=== PATIENT | male | born 1995 | race African-American/Black ===

== ENCOUNTER 2022-04-18 14:49 | Inpatient (IN) | payer OTHER, SELFPAY ==
--- NOTE | ~2022-04-18 | CT_ITS ---
EXAMINATION: CT HEAD WITHOUT CONTRAST CLINICAL INFORMATION: Headache COMPARISON: None TECHNIQUE: Contiguous axial imaging was performed from the skull base to vertex without intravenous administration of contrast. This CT examination was performed using dose optimization techniques as appropriate, variously including the following: *Automated exposure control *Adjustment of mA and/or kV according to patient size (this includes techniques or standardized protocols for targeted exams where dose is matched to indication/reason for exam; i.e. extremities or head) *Use of iterative reconstruction technique DLP: 696 mGy-cm FINDINGS: There is no evidence of acute intracranial hemorrhage or territorial infarction. No abnormal mass effect or midline shift is appreciated. Keller-white differentiation is well preserved. No extra-axial fluid collections. The ventricular system and cortical sulci are normal in size. The osseous structures and soft tissues are normal. Congenitally absent left frontal sinus. Mild mucosal thickening of a few ethmoid air cells. Other visualized paranasal sinuses and mastoid air cells are well aerated. CT/CT head/brain wo IV con IMPRESSION: No CT evidence for acute intracranial pathology.
[2022-04-18 15:35] VITALS: BP 136/64; PULSE 58; RESP 14; TEMP 37.2; O2SAT 100; BMI 22.4
--- NOTE | 2022-04-18 15:45 | ECG_ITS ---
Test Reason : HEADACHE Blood Pressure : / mmHG Vent. Rate : 052 BPM Atrial Rate : 052 BPM P-R Int : 144 ms QRS Dur : 084 ms QT Int : 402 ms P-R-T Axes : 059 079 035 degrees QTc Int : 373 ms Sinus bradycardia Otherwise normal ECG No previous ECGs available Referred By: Destini De Guzman Electronically Signed By:SOLITARIO SANCHES
[2022-04-18 16:39] LABS: MANUAL DIFF FLAG NO
[2022-04-18 16:40] LABS: Basophils Percent Auto 0.6 % (0-2); Eosinophils Absolute Auto 0.1 X10*3/uL (0.0-0.4); Eosinophils Percent Auto 1.9 % (0-4); Hematocrit 46.2 % (42.0-52.0); Hemoglobin 15.2 g/dl (14.0-18.0); Imm Gran Abs Auto 0.02 X10*3/uL (0.00-0.03); Imm Gran Pct Auto 0.3 % (0.0-0.4); Lymphocytes Absolute Auto 2.4 X10*3/uL (1.2-4.9); Lymphocytes Percent Auto 33.9 % (20-40); Mean Corpuscular HGB Conc 32.9 g/dl (31.0-36.0); Mean Corpuscular Volume 88.2 fL (80.0-98.0); Mean Platelet Volume 10.1 fL (9.4-12.4); Monocytes Absolute Auto 0.5 X10*3/uL (0.1-1.2); Monocytes Percent Auto 6.6 % (2-11); Neutrophils Absolute Auto 3.9 x10*3/uL (2.0-8.3); Neutrophils Percent Auto 56.7 % (45-73); Platelet Count 180 X10*3/uL (160-400); Red Blood Count 5.24 X10*6/uL (4.60-5.80); Red Cell Distribution Width 13.2 % (11.0-16.0); White Blood Count 6.9 X10*3/uL (4.8-10.8)
[2022-04-18 16:59] LABS: COVID-19 Test Negative (Negative)
--- NOTE | 2022-04-18 16:59 | ED.PSYCH ---
HPI - Psych General Chief Complaint: Psychiatric Symptoms Stated Complaint: Migraine Time Seen by Provider: 04/18/22 15:44 Source: patient Mode of arrival: ambulatory History of Present Illness HPI Narrative: This is a 26-year-old male who presents for complaints of migraines off and on for 1 year and states that he has been seen multiple times in [place], he denies any association with any tick exposure, fevers, chills, auditory or visual hallucinations, nausea or vomiting or photosensitivity. In addition, he denies any eye or nasal drainage and states that it is ?more of difficulty with focusing?. Patient denies any suicidal or homicidal ideations and states that he was recently admitted approximately 2-3 months ago for these headaches and [place]. Patient states that his headache gets worse attempting to focus and then asks me about ?Darline bots?. On review of the triage note, patient was an expected referral from Dr. Callahan reported concerns about ?disorganized thoughts? and that patient had thought ?needed to have nanobots removed from his head?. Related Data Allergies Allergy/AdvReac Type Severity Reaction Status Date / Time pollen extracts Allergy Itchy Eyes Verified 04/18/22 15:34 Review of Systems Review of Systems: Pertinent positives and negatives as stated in HPI 10 point review of systems is otherwise negative. PMFSH Social History Social History Advance Directives: No Advance Directives Information Provided: Yes Physical Exam Vital Signs: Vital Signs: Last Vital Signs Temp 99.0 F 04/18/22 15:35 Pulse 58 04/18/22 15:35 Resp 14 04/18/22 15:35 BP 136/64 04/18/22 15:35 Pulse Ox 100 04/18/22 15:35 O2 Del Method 04/18/22 15:35 BMI result Body Mass Index 22.4 VITAL SIGNS: Reviewed. GENERAL: Well developed, well nourished, in no acute distress. HEAD: Normocephalic/atraumatic EYES: PERRLA, EOMI, no nystagmus EARS: Ext canals without abnormality, TMs non-bulging and non-erythematous NOSE: Nares patent bilateral OROPHARYNX: no oral lesions noted, posterior pharynx clear NECK: Supple, no adenopathy LUNGS: Normal breath sounds. No adventitious sounds or accessory muscle use. SpO2<100> CARDIOVASCULAR: Regular rate and rhythm without noted murmurs ABDOMEN: Soft, non-tender, non-distended with bowel sounds. MUSCULOSKELETAL: No tenderness, deformities, or effusions noted on gross inspection. EXTREMITIES: No cyanosis, clubbing or edema. SKIN: Inspection of the skin reveals no rashes NEUROLOGIC: Alert and oriented x 4. Strength and sensation to light touch were grossly intact x 4, cranial nerves 2-12 are grossly intact. Course Course Course Narrative: 26-year-old male with history and clinical presentation most consistent with acute psychosis, will evaluate for possible medical etiology, however due to patient's history, the physician who initially evaluated him through the [employer], and on my evaluation he will need to be re-evaluated by the behavioral team although it sounds like they have already seen this patient previously in recommended inpatient. Patient is otherwise medically cleared for further evaluation after receiving combination analgesics for his headache. Reevaluation(s) Reevaluation #1: Patient placed in physician observation because the patient needed more time for evaluation by the behavioral team. At the time observation was started the patient's vital signs were stable, patient is alert and oriented, neuro: Nonfocal, CV RRR, lungs clear Time: 17:40 [facility] - Psych Lab Data Result diagrams: 04/18/22 16:28 04/18/22 16:28 Labs: Lab Results 04/18/22 04/18/22 04/18/22 Range/Units 16:28 16:28 16:28 WBC 6.9 (4.8-10.8) X10*3/uL RBC 5.24 (4.60-5.80) X10*6/uL Hgb 15.2 (14.0-18.0) g/dl Hct 46.2 (42.0-52.0) % MCV 88.2 (80.0-98.0) fL MCH 29.0 (27.0-33.0) pg MCHC 32.9 (31.0-36.0) g/dl RDW 13.2 (11.0-16.0) % Plt Count 180 (160-400) X10*3/uL MPV 10.1 (9.4-12.4) fL Immature Gran % (Auto) 0.3 (0.0-0.4) % Neut % (Auto) 56.7 (45-73) % Lymph % (Auto) 33.9 (20-40) % [place] % (Auto) 6.6 (2-11) % Eos % (Auto) 1.9 (0-4) % Baso % (Auto) 0.6 (0-2) % Lymph # (Auto) 2.4 (1.2-4.9) X10*3/uL [place] # (Auto) 0.5 (0.1-1.2) X10*3/uL Eos # (Auto) 0.1 (0.0-0.4) X10*3/uL Baso # (Auto) 0.0 (0.0-0.2) X10*3/uL Abs Immat Gran (auto) 0.02 (0.00-0.03) X10*3/uL Absolute Neuts (auto) 3.9 (2.0-8.3) x10*3/uL Absolute Nucleated RBC 0.000 (0.0-0.012) X10*3/uL Nucleated RBC % (auto) 0.0 (0.0-0.2) /100WBC Sodium 141 (135-145) mmol/L Potassium 4.5 (3.3-5.1) mmol/L Chloride 104 (96-108) mmol/L Carbon Dioxide 23 (22-29) mmol/L Anion Gap 19 (12-20) BUN 11 (9-16) mg/dL Creatinine 1.02 (0.5-1.4) mg/dL Estim Creat Clear Calc 117.2 Estimated GFR > 60 Random Glucose 76 (60-115) mg/dL Calcium 9.4 (8.4-10.2) mg/dL Total Bilirubin 0.7 (0.0-1.0) mg/dL Direct Bilirubin 0.3 (0.0-0.5) mg/dL AST 29 (5-37) U/L ALT 34 (0-40) U/L Alkaline Phosphatase 111 (39-117) U/L Total Protein 8.1 H (6.5-8.0) g/dL Albumin 4.7 (3.5-5.0) g/dL Urine Color Urine Appearance Urine pH (5.0-9.0) Ur Specific [place] (1.005-1.025) Urine Protein (Neg-Trace) mg/dL Urine Glucose (UA) (Negative) mg/dL Urine Ketones (Negative) mg/dL Urine Blood (Negative) Urine Nitrite (Negative) Ur Leukocyte Esterase (Negative) COVID-19 (TREY) Negative (Negative) COVID-19 Clin Com See Note 04/18/22 Range/Units 16:54 WBC (4.8-10.8) X10*3/uL RBC (4.60-5.80) X10*6/uL Hgb (14.0-18.0) g/dl Hct (42.0-52.0) % MCV (80.0-98.0) fL MCH (27.0-33.0) pg MCHC (31.0-36.0) g/dl RDW (11.0-16.0) % Plt Count (160-400) X10*3/uL MPV (9.4-12.4) fL Immature Gran % (Auto) (0.0-0.4) % Neut % (Auto) (45-73) % Lymph % (Auto) (20-40) % [place] % (Auto) (2-11) % Eos % (Auto) (0-4) % Baso % (Auto) (0-2) % Lymph # (Auto) (1.2-4.9) X10*3/uL [place] # (Auto) (0.1-1.2) X10*3/uL Eos # (Auto) (0.0-0.4) X10*3/uL Baso # (Auto) (0.0-0.2) X10*3/uL Abs Immat Gran (auto) (0.00-0.03) X10*3/uL Absolute Neuts (auto) (2.0-8.3) x10*3/uL Absolute Nucleated RBC (0.0-0.012) X10*3/uL Nucleated RBC % (auto) (0.0-0.2) /100WBC Sodium (135-145) mmol/L Potassium (3.3-5.1) mmol/L Chloride (96-108) mmol/L Carbon Dioxide (22-29) mmol/L Anion Gap (12-20) BUN (9-16) mg/dL Creatinine (0.5-1.4) mg/dL Estim Creat Clear Calc Estimated GFR Random Glucose (60-115) mg/dL Calcium (8.4-10.2) mg/dL Total Bilirubin (0.0-1.0) mg/dL Direct Bilirubin (0.0-0.5) mg/dL AST (5-37) U/L ALT (0-40) U/L Alkaline Phosphatase (39-117) U/L Total Protein (6.5-8.0) g/dL Albumin (3.5-5.0) g/dL Urine Color Yellow Urine Appearance Clear Urine pH 7.0 (5.0-9.0) Ur Specific [place] 1.025 (1.005-1.025) Urine Protein Negative (Neg-Trace) mg/dL Urine Glucose (UA) Negative (Negative) mg/dL Urine Ketones 15 (Negative) mg/dL Urine Blood Negative (Negative) Urine Nitrite Negative (Negative) Ur Leukocyte Esterase Negative (Negative) COVID-19 (TREY) (Negative) COVID-19 Clin Com ECG Data Attestation: I personally reviewed and interpreted this ECG as follows: Prior ECG tracings: not available for review Interpretation: Sinus bradycardia, HR-52, no STEMI, TN/QRS/QTC are within normal limits. Discharge Plan Discharge Clinical Impression: Acute psychosis Patient Disposition: Still a Patient
[2022-04-18 17:00] LABS: Alanine Aminotransferase 34 U/L (0-40); Albumin Level 4.7 g/dL (3.5-5.0); Alkaline Phosphatase 111 U/L (39-117); Anion Gap 19 (12-20); Aspartate Amino Transferase 29 U/L (5-37); Bilirubin Direct 0.3 mg/dL (0.0-0.5); Bilirubin Total 0.7 mg/dL (0.0-1.0); Blood Urea Nitrogen 11 mg/dL (9-16); Calcium 9.4 mg/dL (8.4-10.2); Carbon Dioxide 23 mmol/L (22-29); Chloride 104 mmol/L (96-108); Creatinine Clr Calc Pharmacy 117.2; Estimated Glomerular Filt Rate > 60; Glucose Random 76 mg/dL (60-115); Potassium 4.5 mmol/L (3.3-5.1); Sodium 141 mmol/L (135-145); Total Protein 8.1 g/dL (6.5-8.0)
[2022-04-18 17:36] LABS: Appearance Urine Clear; Color Urine Yellow; Glucose Urine UA Negative (Negative); Leukocyte Esterase Urine Negative (Negative); Nitrite Urine Negative (Negative); Specific Gravity - Urine 1.025 (1.005-1.025); Urine Blood Negative (Negative); Urine Ketones 15 mg/dL (Negative); Urine Protein Negative (Neg-Trace)
[2022-04-18 17:48] VITALS: BP 119/60; PULSE 60; RESP 18; O2SAT 98
[2022-04-18 17:49] LABS: Amphetamine Screen Urine Not Detected (Not Detect); Barbiturates, Urine Not Detected (Not Detect); Benzodiazepines Screen Urine Not Detected (Not Detect); Cannabinoid Screen Urine POSITIVE (Not Detect); Cocaine Screen Urine Not Detected (Not Detect); Fentanyl, urine Not Detected (Not Detect); Opiate Screen Urine Not Detected (Not Detect); Phencyclidine Screen Urine Not Detected (Not Detect)
[2022-04-18] MEDS: Ketorolac Tromethamine 15 MG/ML VIAL IM (18:14)
[2022-04-18] MEDS: Acetaminophen 325 MG TABLET 975 MG PO (18:15)
[2022-04-19] VITALS: BP 139/76; PULSE 71; RESP 18; O2SAT 95
[2022-04-19 02:00] VITALS: BP 127/76; PULSE 81; RESP 18; O2SAT 95
[2022-04-19 08:38] VITALS: BP 156/72; PULSE 18; RESP 14; O2SAT 97
[2022-04-19] MEDS: Nicotine 7 MG PATCH.TD24 TRANSDERMA (20:30)
--- NOTE | 2022-04-19 20:34 | PC.NURSE ---
pt accepted by Dr. Trujillo to [facility].
[2022-04-19 20:36] VITALS: BP 131/60; PULSE 45; RESP 17; TEMP 36.4; O2SAT 97
[2022-04-19 20:40] VITALS: PULSE 50
[2022-04-19 22:50] VITALS: BP 118/73; PULSE 45; RESP 16; TEMP 36.3; O2SAT 96
--- NOTE | 2022-04-20 03:18 | PC.ADMIT ---
Mathieu is a 26 year old male who self presented to [facility] ER reporting he had a migraine and said he had been injected with nanobots. He has no psych history. CT of head was done in ER and was negative. He was positive for marijuana on tox screen. CV was signed. Covid test negative. States he smokes a 1/2 pack of cigarettes daily. Lives at [facility] where he is attending school. He was pleasant and calm during admission. He did not know the name of his PCP or if he had one he said he has no family and said he is from [place] none of this information matches [facility] report.
[2022-04-20 06:00] VITALS: BP 119/80; PULSE 60; RESP 14; RESP 60; TEMP 36.6; O2SAT 98
[2022-04-20 08:31] LABS: Alanine Aminotransferase 31 U/L (0-40); Alkaline Phosphatase 113 U/L (39-117); Anion Gap 16 (12-20); Aspartate Amino Transferase 26 U/L (5-37); Bilirubin Total 1.1 mg/dL (0.0-1.0); Blood Urea Nitrogen 11 mg/dL (9-16); Calcium 10.5 mg/dL (8.4-10.2); Carbon Dioxide 27 mmol/L (22-29); Chloride 104 mmol/L (96-108); Cholesterol 180 mg/dL; Creatinine Clr Calc Pharmacy 94.9; Estimated Glomerular Filt Rate > 60; Glucose Fasting 86 mg/dL (60-99); HDL Cholesterol 60 mg/dL; LDL Cholesterol Calculated 110 mg/dl; Sodium 142 mmol/L (135-145); Total Protein 8.6 g/dL (6.5-8.0); Triglycerides 51 mg/dL
[2022-04-20] MEDS: Acetaminophen 325 MG TABLET 650 MG PO ×3 (08:35→19:06)
[2022-04-20] MEDS: Nicotine 14 MG PATCH.TD24 TRANSDERMA (10:47)
[2022-04-20] MEDS: Nicotine Polacrilex 2 MG GUM BUCCAL (10:48)
--- NOTE | 2022-04-20 17:38 | HO.PSYADMNOT ---
HPI Date of Service: 04/20/22 Chief Complaint: psychosis Sources of Information: patient interviewed, chart reviewed and crisis/core team assessment reviewed HPI Subjective Notes: Poe Warning and Conditional Voluntary Healthcare Proxy: No Guardianship: No Medical Problems Affecting Mental Status: No Narrative: 26 yo male, working with [employer] and attending classes, to ER reporting migraine. [facility]ake reported pt was experiencing sx of disorganization and psychosis, reporting he was injected with nanobots. Pt left the program as well. Pt told the ER team that he was struggling with focus. Presented with paranoia, delusions. Family reports pt is adopted and has been discussing conspiracy theory over the year with increasing anxiety, yelling, screaming, punching of the wall. He appeared to be responding to perceptual alterations. Today, pt is quiet, guarded, apprehensive. 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 Denies visual perceptual alterations. 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 Atkins [phone] buuteeq Nicolette, therapist Medical Evaluation Reviewed: Yes PMF Narrative: headache Family History: adopted, is not aware of family history Social History: Born in [place] Adopted age 5 Two sisters Independent since age 17 Substance History: alcohol, cannabis Trauma History: Denies Diagnostics Vital Signs (24Hr): Vital Signs - 24 hr 04/19/22 20:36 04/19/22 20:40 04/19/22 22:50 Temperature 97.5 F 97.3 F Pulse Rate 45 L 50 45 L Respiratory Rate 17 16 Blood Pressure 131/60 118/73 Pulse Oximetry 97 96 Oxygen Delivery Method Room Air Room Air 04/20/22 06:00 04/20/22 06:00 Temperature 97.8 F 97.8 F Pulse Rate 60 60 Respiratory Rate 60 H 14 Blood Pressure 119/80 119/80 Pulse Oximetry 98 98 Oxygen Delivery Method Room Air Room Air BMI result Body Mass Index 22.4 Labs Results: 04/18/22 16:28 04/20/22 07:51 Labs: Laboratory Results - last 48 hr 04/18/22 04/18/22 04/20/22 16:54 16:54 07:51 Sodium 142 Potassium 5.0 Chloride 104 Carbon Dioxide 27 Anion Gap 16 BUN 11 Creatinine 1.26 Estim Creat Clear Calc 94.9 Estimated GFR > 60 Fasting Glucose 86 Calcium 10.5 H D Total Bilirubin 1.1 H AST 26 ALT 31 Alkaline Phosphatase 113 Total Protein 8.6 H Albumin 5.0 Triglycerides 51 Cholesterol 180 LDL Cholesterol, Calc 110 HDL Cholesterol 60 Urine Color Yellow Urine Appearance Clear Urine pH 7.0 Ur Specific [place] 1.025 Urine Protein Negative Urine Glucose (UA) Negative Urine Ketones 15 Urine Blood Negative Urine Nitrite Negative Ur Leukocyte Esterase Negative Urine Opiates Screen Not Detected Urine Fentanyl Screen Not Detected Ur Barbiturates Screen Not Detected Ur Phencyclidine Scrn Not Detected Ur Amphetamines Screen Not Detected U Benzodiazepines Scrn Not Detected Urine Cocaine Screen Not Detected U Marijuana (THC) Screen POSITIVE H Imaging Radiology Impressions: ITS Impressions Head CT 04/18/22 16:34 IMPRESSION: No CT evidence for acute intracranial pathology. Meds/Allergies Allergies Allergies Allergy/AdvReac Type Severity Reaction Status Date / Time pollen extracts Allergy Itchy Eyes Verified 04/18/22 15:34 Mental Status Exam Mental Status Exam Patient Appearance: Appropriate Patient Orientation: Person, Place, Time and Situation Level of Consciousness: Alert Patient Behavior: Guarded, Talkative, Fearful, Distractible and Good Eye Contact Mood Description: Withdrawn Affect Description: Withdrawn Patient Cognition Impaired: No Ability to Follow Directions: Good Speech Pattern: Spontaneous Speech Memory Description: Episodic Impaired Delusions: Paranoid Ideation and Present Perceptual Disturbances: Depersonalization and Derealization Thought Process: Distracted Thought Content: positive for Circumstantial, positive for Perseveration, positive for Preoccupation and positive for Suicidal Ideation (denies) Depressive Symptoms: Thoughts of /Suicide (denies) Abnormal Motor Activity Signs and Symptoms: Restlessness Judgement: Fair Assessment & Plan Assessment & Plan (1) Acute psychosis: Status: Acute Code(s): F23 - Brief psychotic disorder Plan 26 yo male presents with paranoia, delusions, belief that he has had nonobots injected into his head. Reports headache, responding to internal stimuli. Plan: Collateral contacts Diagnostics, headache eval Olanzapine 10 mg HS Patient educated on: other Informed Consent: further education needed Reason for continued inpatient stay Substantial Risk for: harm to self, harm to others, inability to function and rapid decompensation
[2022-04-20 21:00] VITALS: BP 148/81; PULSE 46; RESP 16; TEMP 36.6; O2SAT 100
[2022-04-20] MEDS: OLANZapine 10 MG TABLET PO (21:04)
[2022-04-20] MEDS: hydrOXYzine HCL 25 MG TABLET PO (21:06)
[2022-04-20] MEDS: Clotrimazole 1 % Cream 15 GM TUBE 1 APPL TOPICAL (21:07)
[2022-04-21] MEDS: Clotrimazole 1 % Cream 15 GM TUBE 1 APPL TOPICAL ×2 (09:02→21:59)
[2022-04-21] MEDS: Nicotine 14 MG PATCH.TD24 TRANSDERMA (09:02)
--- NOTE | 2022-04-21 16:51 | P.PNPSI_ITS ---
Subjective Subjective Date of Service: 04/21/22 Reason For Visit: psychosis Subjective Notes: 3 Day Interim History: Pt accepted Olanzapine 10 mg last evening. Reports some improvement in voices. Tony GRANT discussed with pt his conversation with [employer] and their perception of pt's decompensation over the past month. They describe him as an excellent student and employee. They are expecting pt to use medicine prior to return. Pt, although not wanting to use meds, agrees he needs them. Pt, [facility] will need to attend a correction as he reports he has severed relationships that would be potential resources for housing. Reports s ome improvement of headache, denies SI, and mood is good . Voices overall are quieter . Medication Compliance: Yes Side effects from medications: No Attending Groups: Intermittent Review of Systems Acute medical concerns: No Medical Review of Systems: unchanged Mental Status Exam Mental Status Exam Patient Appearance: Appropriate Patient Orientation: Person, Place, Time and Situation Level of Consciousness: Alert Patient Behavior: Talkative, Fearful, Distractible and Good Eye Contact Mood Description: Withdrawn Affect Description: Withdrawn Patient Cognition Impaired: No Ability to Follow Directions: Good Speech Pattern: Spontaneous Speech Memory Description: Episodic Impaired Delusions: Paranoid Ideation and Present Perceptual Disturbances: Depersonalization and Derealization Thought Process: Distracted Thought Content: positive for Circumstantial, positive for Perseveration, positive for Preoccupation and positive for Suicidal Ideation (denies) Depressive Symptoms: Thoughts of /Suicide (denies) Abnormal Motor Activity Signs and Symptoms: Restlessness Judgement: Fair Diagnostics Vital Signs (24Hr): Vital Signs - 24 hr 04/20/22 21:00 Temperature 98 F Pulse Rate 46 L Respiratory Rate 16 Blood Pressure 148/81 H Pulse Oximetry 100 Oxygen Delivery Method Room Air BMI result Body Mass Index 22.4 Labs Results: 04/18/22 16:28 04/20/22 07:51 Labs: Laboratory Results - last 48 hr 04/20/22 07:51 Sodium 142 Potassium 5.0 Chloride 104 Carbon Dioxide 27 Anion Gap 16 BUN 11 Creatinine 1.26 Estim Creat Clear Calc 94.9 Estimated GFR > 60 Fasting Glucose 86 Calcium 10.5 H D Total Bilirubin 1.1 H AST 26 ALT 31 Alkaline Phosphatase 113 Total Protein 8.6 H Albumin 5.0 Triglycerides 51 Cholesterol 180 LDL Cholesterol, Calc 110 HDL Cholesterol 60 Imaging Radiology Impressions: ITS Impressions Head CT 04/18/22 16:34 IMPRESSION: No CT evidence for acute intracranial pathology. Medications Medications Current Medications Acetaminophen (Acetaminophen 325 Mg Tablet) 650 mg PO Q6H PRN PRN Reason: Headache/Pain Mild Scale (1-3) Last Admin: 04/20/22 19:06 Dose: 650 mg Al Hydroxide/Mg Hydroxide (Magnesium Hydrox/Alum Hydrox 30 Ml Oral.Susp) 30 ml PO Q6H PRN PRN Reason: Heartburn/Nausea Clotrimazole (Clotrimazole 1 % Cream 15 Gm Tube) 1 appl TOPICAL BID FUNMILAYO; Protocol Last Admin: 04/21/22 09:02 Dose: 1 appl Hydroxyzine HCl (Hydroxyzine Hcl 25 Mg Tablet) 25 mg PO Q6H PRN PRN Reason: Anxiety Last Admin: 04/20/22 21:06 Dose: 25 mg Magnesium Hydroxide (Milk Of Magnesia 30 Ml Oral.Susp) 30 ml PO DAILY PRN PRN Reason: Constipation Nicotine (Nicotine 14 Mg Patch.Td24) 14 mg TRANSDERMA DAILY [facility] Last Admin: 04/21/22 09:02 Dose: 14 mg Nicotine Polacrilex (Nicotine Polacrilex 2 Mg Gum) 2 mg BUCCAL Q2H PRN PRN Reason: Nicotine Cravings Last Admin: 04/20/22 10:48 Dose: 2 mg Olanzapine (Olanzapine 10 Mg Tablet) 10 mg PO BEDTIME [facility] Last Admin: 04/20/22 21:04 Dose: 10 mg Trazodone HCl (Trazodone Hcl 50 Mg Tablet) 50 mg PO BEDTIME PRN PRN Reason: Insomnia Allergies Allergies Allergy/AdvReac Type Severity Reaction Status Date / Time pollen extracts Allergy Itchy Eyes Verified 04/18/22 15:34 Assessment & Plan Assessment & Plan (1) Acute psychosis: Status: Acute Code(s): F23 - Brief psychotic disorder Plan 26 yo male presents with paranoia, delusions, belief that he has had nonobots injected into his head. Reports headache, responding to internal stimuli. Plan: Collateral contacts Diagnostics, headache eval Olanzapine 10 mg HS 04/21/22- Continue Olanzapine 10 mg HS- final dosage Begin Abilify 10 mg 04/22 I spent minutes with the patient and/or on the patient floor today, greater than?50% of which was spent counseling/coordinating care. Patient educated on: therapeutic strategies Informed Consent: further education needed Reason for contiued inpatient stay Substantial Risk for: inability to function and rapid decompensation
[2022-04-21 19:05] VITALS: BP 108/57; PULSE 88; TEMP 36.2
[2022-04-21] MEDS: OLANZapine 10 MG TABLET PO (21:56)
[2022-04-21] MEDS: hydrOXYzine HCL 25 MG TABLET PO (21:56)
[2022-04-21] MEDS: Nicotine Polacrilex 2 MG GUM BUCCAL (21:58)
[2022-04-22 08:00] VITALS: BP 126/58; PULSE 51; TEMP 36.4; O2SAT 99
[2022-04-22] MEDS: Nicotine 14 MG PATCH.TD24 TRANSDERMA (08:12)
[2022-04-22] MEDS: Clotrimazole 1 % Cream 15 GM TUBE 1 APPL TOPICAL ×2 (08:12→19:50)
[2022-04-22] MEDS: Acetaminophen 325 MG TABLET 650 MG PO (13:47)
[2022-04-22] MEDS: Nicotine Polacrilex 2 MG GUM BUCCAL ×2 (15:48→20:44)
--- NOTE | 2022-04-22 16:16 | HO.PSYCHPN ---
Subjective Subjective Date of Service: 04/22/22 Reason For Visit: psychosis Subjective Notes: 3 Day Interim History: Tolerating meds. 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 Medication Compliance: Yes Side effects from medications: No Attending Groups: Intermittent Review of Systems Acute medical concerns: No Medical Review of Systems: unchanged Mental Status Exam Mental Status Exam Patient Appearance: Appropriate Patient Orientation: Person, Place, Time and Situation Level of Consciousness: Alert Patient Behavior: Talkative, Cooperative, Passive, Anxious, Distractible and Good Eye Contact Mood Description: Calm, Withdrawn and Apprehensive Affect Description: Constricted Patient Cognition Impaired: No Ability to Follow Directions: Good Speech Pattern: Spontaneous Speech Memory Description: Intact Hallucinations: Auditory (reports a decrease) Delusions: Paranoid Ideation Thought Process: Goal Oriented Thought Content: positive for Goal Oriented, positive for Suicidal Ideation (denies) and positive for Homicidal Ideation (denies) Judgement: Fair Diagnostics Vital Signs (24Hr): Vital Signs - 24 hr 04/21/22 19:05 04/22/22 08:00 Temperature 97.2 F 97.5 F Pulse Rate 88 51 Blood Pressure 108/57 L 126/58 L Pulse Oximetry 99 Oxygen Delivery Method Room Air BMI result Body Mass Index 22.4 Labs Results: 04/18/22 16:28 04/20/22 07:51 Imaging Radiology Impressions: ITS Impressions Head CT 04/18/22 16:34 IMPRESSION: No CT evidence for acute intracranial pathology. Medications Medications Current Medications Acetaminophen (Acetaminophen 325 Mg Tablet) 650 mg PO Q6H PRN PRN Reason: Headache/Pain Mild Scale (1-3) Last Admin: 04/22/22 13:47 Dose: 650 mg Al Hydroxide/Mg Hydroxide (Magnesium Hydrox/Alum Hydrox 30 Ml Oral.Susp) 30 ml PO Q6H PRN PRN Reason: Heartburn/Nausea Aripiprazole (Aripiprazole 10 Mg Tablet) 10 mg PO BEDTIME FUNMILAYO Clotrimazole (Clotrimazole 1 % Cream 15 Gm Tube) 1 appl TOPICAL BID FUNMILAYO; Protocol Last Admin: 04/22/22 08:12 Dose: 1 appl Hydroxyzine HCl (Hydroxyzine Hcl 25 Mg Tablet) 25 mg PO Q6H PRN PRN Reason: Anxiety Last Admin: 04/21/22 21:56 Dose: 25 mg Magnesium Hydroxide (Milk Of Magnesia 30 Ml Oral.Susp) 30 ml PO DAILY PRN PRN Reason: Constipation Nicotine (Nicotine 14 Mg Patch.Td24) 14 mg TRANSDERMA DAILY FUNMILAYO Last Admin: 04/22/22 08:12 Dose: 14 mg Nicotine Polacrilex (Nicotine Polacrilex 2 Mg Gum) 2 mg BUCCAL Q2H PRN PRN Reason: Nicotine Cravings Last Admin: 04/22/22 15:48 Dose: 2 mg Trazodone HCl (Trazodone Hcl 50 Mg Tablet) 50 mg PO BEDTIME PRN PRN Reason: Insomnia Allergies Allergies Allergy/AdvReac Type Severity Reaction Status Date / Time pollen extracts Allergy Itchy Eyes Verified 04/18/22 15:34 Assessment & Plan Assessment & Plan (1) Acute psychosis: Status: Acute Code(s): F23 - Brief psychotic disorder Plan 26 yo male presents with paranoia, delusions, belief that he has had nonobots injected into his head. Reports headache, responding to internal stimuli. Plan: Collateral contacts Diagnostics, headache eval Olanzapine 10 mg HS 04/21/22- Continue Olanzapine 10 mg HS- final dosage Begin Abilify 10 mg 04/2204/22/22- Discontinue Olanzapine. Reports a decrease in auditory perceptual alterations. Some improvement. I spent minutes with the patient and/or on the patient floor today, greater than?50% of which was spent counseling/coordinating care. Patient educated on: medication risk/benefits and therapeutic strategies Informed Consent: understands and further education needed Reason for contiued inpatient stay Substantial Risk for: rapid decompensation
[2022-04-22 17:28] VITALS: BP 130/66; PULSE 54; RESP 16; TEMP 36.6; O2SAT 99
[2022-04-22] MEDS: ARIPiprazole 10 MG TABLET PO (19:49)
[2022-04-22] MEDS: traZODone HCL 50 MG TABLET PO (20:44)
[2022-04-23 06:00] VITALS: BP 126/72; PULSE 88; RESP 16; TEMP 36.6; O2SAT 98
[2022-04-23] MEDS: Clotrimazole 1 % Cream 15 GM TUBE 1 APPL TOPICAL ×2 (08:13→18:56)
[2022-04-23] MEDS: Nicotine 14 MG PATCH.TD24 TRANSDERMA (08:13)
--- NOTE | 2022-04-23 09:32 | P.PNPSI_ITS ---
Subjective Subjective Date of Service: 04/23/22 Reason For Visit: psychosis Subjective Notes: Conditional Voluntary and 3 Day Interim History: Retracted and resubmitted three day notice to 04/27 Sleep improved, Abilify tolerated, however, reports vomiting x 1 last night I think it may be from the nicotine patch. Overall reports medications to be helpful. Voices are now just hissing . 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 Medication Compliance: Yes Side effects from medications: Yes (?vomiting episode from Abilify or possibly Nicotine Patch) Attending Groups: Yes Review of Systems Acute medical concerns: No Medical Review of Systems: unchanged Mental Status Exam Mental Status Exam Patient Appearance: Appropriate Patient Orientation: Person, Place, Time and Situation Level of Consciousness: Alert Patient Behavior: Talkative, Cooperative, Passive, Anxious, Distractible and Good Eye Contact Mood Description: Calm, Withdrawn and Apprehensive Affect Description: Constricted Patient Cognition Impaired: No Ability to Follow Directions: Good Speech Pattern: Spontaneous Speech Memory Description: Intact Hallucinations: Auditory (reports a decrease) Delusions: Paranoid Ideation Thought Process: Goal Oriented Thought Content: positive for Goal Oriented, positive for Suicidal Ideation (denies) and positive for Homicidal Ideation (denies) Judgement: Fair Diagnostics Vital Signs (24Hr): Vital Signs - 24 hr 04/22/22 17:28 04/23/22 06:00 Temperature 98 F 98 F Pulse Rate 54 88 Respiratory Rate 16 16 Blood Pressure 130/66 126/72 Pulse Oximetry 99 98 Oxygen Delivery Method Room Air Room Air BMI result Body Mass Index 22.4 Labs Results: 04/18/22 16:28 04/20/22 07:51 Imaging Radiology Impressions: ITS Impressions Head CT 04/18/22 16:34 IMPRESSION: No CT evidence for acute intracranial pathology. Medications Medications Current Medications Acetaminophen (Acetaminophen 325 Mg Tablet) 650 mg PO Q6H PRN PRN Reason: Headache/Pain Mild Scale (1-3) Last Admin: 04/22/22 13:47 Dose: 650 mg Al Hydroxide/Mg Hydroxide (Magnesium Hydrox/Alum Hydrox 30 Ml Oral.Susp) 30 ml PO Q6H PRN PRN Reason: Heartburn/Nausea Aripiprazole (Aripiprazole 10 Mg Tablet) 10 mg PO BEDTIME COUNT INCLUDES [facility] Last Admin: 04/22/22 19:49 Dose: 10 mg Clotrimazole (Clotrimazole 1 % Cream 15 Gm Tube) 1 appl TOPICAL BID FUNMILAYO; Protocol Last Admin: 04/23/22 08:13 Dose: 1 appl Hydroxyzine HCl (Hydroxyzine Hcl 25 Mg Tablet) 25 mg PO Q6H PRN PRN Reason: Anxiety Last Admin: 04/21/22 21:56 Dose: 25 mg Magnesium Hydroxide (Milk Of Magnesia 30 Ml Oral.Susp) 30 ml PO DAILY PRN PRN Reason: Constipation Nicotine (Nicotine 14 Mg Patch.Td24) 14 mg TRANSDERMA DAILY FUNMILAYO Last Admin: 04/23/22 08:13 Dose: 14 mg Nicotine Polacrilex (Nicotine Polacrilex 2 Mg Gum) 2 mg BUCCAL Q2H PRN PRN Reason: Nicotine Cravings Last Admin: 04/22/22 20:44 Dose: 2 mg Trazodone HCl (Trazodone Hcl 50 Mg Tablet) 50 mg PO BEDTIME PRN PRN Reason: Insomnia Last Admin: 04/22/22 20:44 Dose: 50 mg Allergies Allergies Allergy/AdvReac Type Severity Reaction Status Date / Time pollen extracts Allergy Itchy Eyes Verified 04/18/22 15:34 Assessment & Plan Assessment & Plan (1) Acute psychosis: Status: Acute Code(s): F23 - Brief psychotic disorder Plan 26 yo male presents with paranoia, delusions, belief that he has had nonobots injected into his head. Reports headache, responding to internal stimuli. Plan: Collateral contacts Diagnostics, headache eval Olanzapine 10 mg HS 04/21/22- Continue Olanzapine 10 mg HS- final dosage Begin Abilify 10 mg 04/2204/23/22- Continue current regime. I spent minutes with the patient and/or on the patient floor today, greater than?50% of which was spent counseling/coordinating care. Patient educated on: medication risk/benefits and therapeutic strategies Informed Consent: understands and further education needed Reason for contiued inpatient stay Substantial Risk for: inability to function and rapid decompensation
[2022-04-23] MEDS: Nicotine Polacrilex 2 MG GUM BUCCAL ×4 (12:07→18:55)
[2022-04-23 16:31] VITALS: BP 123/55; PULSE 54
[2022-04-23] MEDS: traZODone HCL 50 MG TABLET PO (18:53)
[2022-04-23] MEDS: ARIPiprazole 10 MG TABLET PO (18:53)
[2022-04-24] MEDS: Nicotine 14 MG PATCH.TD24 TRANSDERMA (07:45)
[2022-04-24] MEDS: Clotrimazole 1 % Cream 15 GM TUBE 1 APPL TOPICAL (08:53)
[2022-04-24] MEDS: Nicotine Polacrilex 2 MG GUM BUCCAL ×4 (08:54→19:24)
[2022-04-24 08:55] VITALS: BP 145/76; PULSE 67; RESP 18; TEMP 36.6; O2SAT 99
[2022-04-24 08:57] VITALS: BMI 20.9
--- NOTE | 2022-04-24 13:25 | HO.PSYCHPN ---
Subjective Subjective Date of Service: 04/24/22 Reason For Visit: psychosis Subjective Notes: Conditional Voluntary and 3 Day Healthcare Proxy: No Guardianship: No Medical Problems Affecting Mental Status: No Interim History: Reports voices are managed. Tolerating Abilify. Reports no vomiting last night. Will plan to increase Abilify 04/25 HS to 15 mg. Pt agrees. TDN to on 04/27. Pt wanting to return to his classes at [employer] He believes sx are well managed at this point and he can return. Medication Compliance: Yes Side effects from medications: No Attending Groups: Intermittent Review of Systems Acute medical concerns: No Medical Review of Systems: unchanged Mental Status Exam Mental Status Exam Patient Appearance: Appropriate Patient Orientation: Person, Place, Time and Situation Level of Consciousness: Alert Patient Behavior: Talkative, Cooperative, Passive, Anxious, Distractible and Good Eye Contact Mood Description: Calm, Withdrawn and Apprehensive Affect Description: Constricted Patient Cognition Impaired: No Ability to Follow Directions: Good Speech Pattern: Spontaneous Speech Memory Description: Intact Hallucinations: Auditory (reports a decrease) Delusions: Paranoid Ideation Thought Process: Goal Oriented Thought Content: positive for Goal Oriented, positive for Suicidal Ideation (denies) and positive for Homicidal Ideation (denies) Judgement: Fair Diagnostics Vital Signs (24Hr): Vital Signs - 24 hr 04/23/22 16:31 04/24/22 08:55 Temperature 97.8 F Pulse Rate 54 67 Respiratory Rate 18 Blood Pressure 123/55 L 145/76 H Pulse Oximetry 99 Oxygen Delivery Method Room Air BMI result Body Mass Index 20.9 Labs Results: 04/18/22 16:28 04/20/22 07:51 Imaging Radiology Impressions: ITS Impressions Head CT 04/18/22 16:34 IMPRESSION: No CT evidence for acute intracranial pathology. Medications Medications Current Medications Acetaminophen (Acetaminophen 325 Mg Tablet) 650 mg PO Q6H PRN PRN Reason: Headache/Pain Mild Scale (1-3) Last Admin: 04/22/22 13:47 Dose: 650 mg Al Hydroxide/Mg Hydroxide (Magnesium Hydrox/Alum Hydrox 30 Ml Oral.Susp) 30 ml PO Q6H PRN PRN Reason: Heartburn/Nausea Aripiprazole (Aripiprazole 10 Mg Tablet) 10 mg PO BEDTIME [facility] Last Admin: 04/23/22 18:53 Dose: 10 mg Clotrimazole (Clotrimazole 1 % Cream 15 Gm Tube) 1 appl TOPICAL BID FUNMILAYO; Protocol Last Admin: 04/24/22 08:53 Dose: 1 appl Hydroxyzine HCl (Hydroxyzine Hcl 25 Mg Tablet) 25 mg PO Q6H PRN PRN Reason: Anxiety Last Admin: 04/21/22 21:56 Dose: 25 mg Magnesium Hydroxide (Milk Of Magnesia 30 Ml Oral.Susp) 30 ml PO DAILY PRN PRN Reason: Constipation Nicotine (Nicotine 14 Mg Patch.Td24) 14 mg TRANSDERMA DAILY FUNMILAYO Last Admin: 04/24/22 07:45 Dose: 14 mg Nicotine Polacrilex (Nicotine Polacrilex 2 Mg Gum) 2 mg BUCCAL Q2H PRN PRN Reason: Nicotine Cravings Last Admin: 04/24/22 08:54 Dose: 2 mg Trazodone HCl (Trazodone Hcl 50 Mg Tablet) 50 mg PO BEDTIME PRN PRN Reason: Insomnia Last Admin: 04/23/22 18:53 Dose: 50 mg Allergies Allergies Allergy/AdvReac Type Severity Reaction Status Date / Time pollen extracts Allergy Itchy Eyes Verified 04/18/22 15:34 Assessment & Plan Assessment & Plan (1) Acute psychosis: Status: Acute Code(s): F23 - Brief psychotic disorder Plan 26 yo male presents with paranoia, delusions, belief that he has had nonobots injected into his head. Reports headache, responding to internal stimuli. Plan: Collateral contacts Diagnostics, headache eval Olanzapine 10 mg HS 04/21/22- Continue Olanzapine 10 mg HS- final dosage Begin Abilify 10 mg 04/2204/24/22- Increase Abilify on 04/25/22 TSH, B12, Folate, A1c, Lipid Panel on 04/26 in preparation for discharge. I spent minutes with the patient and/or on the patient floor today, greater than?50% of which was spent counseling/coordinating care. Patient educated on: medication risk/benefits and therapeutic strategies Informed Consent: understands and further education needed Reason for contiued inpatient stay Substantial Risk for: inability to function and rapid decompensation
[2022-04-24] MEDS: Acetaminophen 325 MG TABLET 650 MG PO (16:34)
[2022-04-24 17:35] VITALS: BP 140/62; PULSE 55; TEMP 36.6
[2022-04-24] MEDS: hydrOXYzine HCL 25 MG TABLET PO (18:58)
[2022-04-24] MEDS: ARIPiprazole 10 MG TABLET PO (18:58)
[2022-04-24] MEDS: traZODone HCL 50 MG TABLET PO (19:52)
[2022-04-25] MEDS: Nicotine 14 MG PATCH.TD24 TRANSDERMA (08:02)
[2022-04-25 08:04] VITALS: BP 127/82; PULSE 70; RESP 18; TEMP 36.4; O2SAT 99
[2022-04-25] MEDS: Nicotine Polacrilex 2 MG GUM BUCCAL ×3 (15:15→21:29)
--- NOTE | 2022-04-25 15:49 | HO.PSYCHPN ---
Subjective Subjective Date of Service: 04/25/22 Reason For Visit: psychosis Subjective Notes: 3 Day Healthcare Proxy: No Guardianship: No Medical Problems Affecting Mental Status: No Interim History: wonders about taking medication in am to help him focus will consider ? if sedating will not change Medication Compliance: Yes Side effects from medications: No Attending Groups: Intermittent Review of Systems Acute medical concerns: No Review of Systems Review of Systems Less headache then when presented! Mental Status Exam Mental Status Exam Narrative: quiet, reading engineering book Patient Appearance: Well Grooomed and Appropriate Patient Orientation: Person, Place, Time and Situation Level of Consciousness: Awake and Appropriate Patient Behavior: Appropriate, Cooperative and Passive Mood Description: Calm Affect Description: Constricted Patient Cognition Impaired: No Ability to Follow Directions: Fair Speech Pattern: Clear Hallucinations: None Delusions: Not Present Thought Process: Distracted and Slowed Thinking Thought Content: positive for Slowed Thinking (mildly disorganized) Depressive Symptoms: Difficulty Concentrating Judgement: Fair Diagnostics Vital Signs (24Hr): Vital Signs - 24 hr 04/24/22 17:35 04/25/22 08:04 Temperature 97.8 F 97.6 F Pulse Rate 55 70 Respiratory Rate 18 Blood Pressure 140/62 H 127/82 Pulse Oximetry 99 Oxygen Delivery Method Room Air BMI result Body Mass Index 20.9 Labs Results: 04/18/22 16:28 04/20/22 07:51 Imaging Radiology Impressions: ITS Impressions Head CT 04/18/22 16:34 IMPRESSION: No CT evidence for acute intracranial pathology. Medications Medications Current Medications Acetaminophen (Acetaminophen 325 Mg Tablet) 650 mg PO Q6H PRN PRN Reason: Headache/Pain Mild Scale (1-3) Last Admin: 04/24/22 16:34 Dose: 650 mg Al Hydroxide/Mg Hydroxide (Magnesium Hydrox/Alum Hydrox 30 Ml Oral.Susp) 30 ml PO Q6H PRN PRN Reason: Heartburn/Nausea Aripiprazole (Aripiprazole 15 Mg Tablet) 15 mg PO BEDTIME FUNMILAYO Clotrimazole (Clotrimazole 1 % Cream 15 Gm Tube) 1 appl TOPICAL BID FUNMILAYO; Protocol Last Admin: 04/25/22 10:32 Dose: Not Given Hydroxyzine HCl (Hydroxyzine Hcl 25 Mg Tablet) 25 mg PO Q6H PRN PRN Reason: Anxiety Last Admin: 04/24/22 18:58 Dose: 25 mg Magnesium Hydroxide (Milk Of Magnesia 30 Ml Oral.Susp) 30 ml PO DAILY PRN PRN Reason: Constipation Nicotine (Nicotine 14 Mg Patch.Td24) 14 mg TRANSDERMA DAILY FUNMILAYO Last Admin: 04/25/22 08:02 Dose: 14 mg Nicotine Polacrilex (Nicotine Polacrilex 2 Mg Gum) 2 mg BUCCAL Q2H PRN PRN Reason: Nicotine Cravings Last Admin: 04/25/22 15:15 Dose: 2 mg Trazodone HCl (Trazodone Hcl 50 Mg Tablet) 50 mg PO BEDTIME PRN PRN Reason: Insomnia Last Admin: 04/24/22 19:52 Dose: 50 mg Allergies Allergies Allergy/AdvReac Type Severity Reaction Status Date / Time pollen extracts Allergy Itchy Eyes Verified 04/18/22 15:34 Assessment & Plan Assessment & Plan (1) Acute psychosis: Status: Acute Code(s): F23 - Brief psychotic disorder Assessment and Plan: changing up dosing of abilify so 5mg tonight and 10mg in am to see how he tolerates switching meds to am - but did tell him it is a 24 hr medication- Plan 26 yo male presents with paranoia, delusions, belief that he has had nonobots injected into his head. Reports headache, responding to internal stimuli. Plan: Collateral contacts Diagnostics, headache eval Olanzapine 10 mg HS 04/21/22- Continue Olanzapine 10 mg HS- final dosage Begin Abilify 10 mg 04/2204/24/22- Increase Abilify on 04/25/22 TSH, B12, Folate, A1c, Lipid Panel on 04/26 in preparation for discharge. I spent minutes with the patient and/or on the patient floor today, greater than?50% of which was spent counseling/coordinating care. Patient educated on: medication risk/benefits Informed Consent: understands Reason for contiued inpatient stay Substantial Risk for: rapid decompensation
[2022-04-25 15:58] VITALS: BP 140/78; PULSE 50
[2022-04-25] MEDS: hydrOXYzine HCL 25 MG TABLET PO (19:01)
[2022-04-25] MEDS: traZODone HCL 50 MG TABLET PO (19:01)
[2022-04-25] MEDS: ARIPiprazole 15 MG TABLET PO (19:01)
[2022-04-26 07:53] LABS: Cholesterol 150 mg/dL; HDL Cholesterol 48 mg/dL; LDL Cholesterol Calculated 93 mg/dl; Triglycerides 45 mg/dL
[2022-04-26 08:13] LABS: Thyroid Stimulating Hormone 1.06 uIU/mL (0.32-4.0)
[2022-04-26 08:15] LABS: Estimated Average Glucose 114 mg/dL; Hemoglobin A1c % 5.6 %
[2022-04-26] MEDS: ARIPiprazole 10 MG TABLET PO (08:21)
[2022-04-26] MEDS: Clotrimazole 1 % Cream 15 GM TUBE 1 APPL TOPICAL (08:22)
[2022-04-26] MEDS: Nicotine 14 MG PATCH.TD24 TRANSDERMA (08:22)
[2022-04-26 08:24] VITALS: BP 130/79; PULSE 61; RESP 18; TEMP 36.4; O2SAT 99
[2022-04-26] MEDS: Nicotine Polacrilex 2 MG GUM BUCCAL ×4 (09:33→19:24)
--- NOTE | 2022-04-26 11:58 | HO.PSYCHPN ---
Subjective Subjective Date of Service: 04/26/22 Reason For Visit: psychosis Subjective Notes: Conditional Voluntary Healthcare Proxy: No Guardianship: No Medical Problems Affecting Mental Status: No Interim History: Pt pleased to try abilify in day- takes trazodone to sleep at night had not been sleeping much before admission maybe 1-2 hrs here and there- not too sleepy from abilify and wants to see if it helps him focus in day Discussed further transition of dose to all in am tomorrow- Though he should continue to take trazodone at night Medication Compliance: Yes Side effects from medications: No Attending Groups: No Review of Systems Acute medical concerns: No Mental Status Exam Mental Status Exam Narrative: quiet, sitting on bed Patient Appearance: Well Grooomed and Appropriate Patient Orientation: Person, Place, Time and Situation Level of Consciousness: Awake and Appropriate Patient Behavior: Appropriate, Cooperative, Passive and Good Eye Contact Mood Description: Calm Affect Description: Constricted Patient Cognition Impaired: No Ability to Follow Directions: Fair Speech Pattern: Clear Hallucinations: None Delusions: Not Present Thought Process: Distracted and Slowed Thinking Thought Content: positive for Slowed Thinking (mildly disorganized) Depressive Symptoms: Difficulty Concentrating Judgement: Good Diagnostics Vital Signs (24Hr): Vital Signs - 24 hr 04/25/22 15:58 04/26/22 08:24 Temperature 97.5 F Pulse Rate 50 61 Respiratory Rate 18 Blood Pressure 140/78 H 130/79 Pulse Oximetry 99 Oxygen Delivery Method Room Air BMI result Body Mass Index 20.9 Labs Results: 04/18/22 16:28 04/20/22 07:51 Labs: Laboratory Results - last 48 hr 04/26/22 04/26/22 07:23 07:23 Estimat Average Glucose 114 Hemoglobin A1c % 5.6 Triglycerides 45 Cholesterol 150 LDL Cholesterol, Calc 93 HDL Cholesterol 48 TSH 1.06 Imaging Radiology Impressions: ITS Impressions Head CT 04/18/22 16:34 IMPRESSION: No CT evidence for acute intracranial pathology. Medications Medications Current Medications Acetaminophen (Acetaminophen 325 Mg Tablet) 650 mg PO Q6H PRN PRN Reason: Headache/Pain Mild Scale (1-3) Last Admin: 04/24/22 16:34 Dose: 650 mg Al Hydroxide/Mg Hydroxide (Magnesium Hydrox/Alum Hydrox 30 Ml Oral.Susp) 30 ml PO Q6H PRN PRN Reason: Heartburn/Nausea Aripiprazole (Aripiprazole 5 Mg Tablet) 5 mg PO BEDTIME [facility] Last Admin: 04/25/22 20:27 Dose: Not Given Aripiprazole (Aripiprazole 10 Mg Tablet) 10 mg PO DAILY [facility] Last Admin: 04/26/22 08:21 Dose: 10 mg Clotrimazole (Clotrimazole 1 % Cream 15 Gm Tube) 1 appl TOPICAL BID FUNMILAYO; Protocol Last Admin: 04/26/22 08:22 Dose: 1 appl Hydroxyzine HCl (Hydroxyzine Hcl 25 Mg Tablet) 25 mg PO Q6H PRN PRN Reason: Anxiety Last Admin: 04/25/22 19:01 Dose: 25 mg Magnesium Hydroxide (Milk Of Magnesia 30 Ml Oral.Susp) 30 ml PO DAILY PRN PRN Reason: Constipation Nicotine (Nicotine 14 Mg Patch.Td24) 14 mg TRANSDERMA DAILY [facility] Last Admin: 04/26/22 08:22 Dose: 14 mg Nicotine Polacrilex (Nicotine Polacrilex 2 Mg Gum) 2 mg BUCCAL Q2H PRN PRN Reason: Nicotine Cravings Last Admin: 04/26/22 09:33 Dose: 2 mg Trazodone HCl (Trazodone Hcl 50 Mg Tablet) 50 mg PO BEDTIME PRN PRN Reason: Insomnia Last Admin: 04/25/22 19:01 Dose: 50 mg Allergies Allergies Allergy/AdvReac Type Severity Reaction Status Date / Time pollen extracts Allergy Itchy Eyes Verified 04/18/22 15:34 Assessment & Plan Assessment & Plan (1) Acute psychosis: Status: Acute Code(s): F23 - Brief psychotic disorder Assessment and Plan: changing up dosing of abilify so 5mg tonight and 10mg in am to see how he tolerates switching meds to am - but did tell him it is a 24 hr medication- 04/26 will change all abilify to am tomorrow Plan 26 yo male presents with paranoia, delusions, belief that he has had nonobots injected into his head. Reports headache, responding to internal stimuli. Plan: Collateral contacts Diagnostics, headache eval Olanzapine 10 mg HS 04/21/22- Continue Olanzapine 10 mg HS- final dosage Begin Abilify 10 mg 04/2204/24/22- Increase Abilify on 04/25/22 TSH, B12, Folate, A1c, Lipid Panel on 04/26 in preparation for discharge. I spent minutes with the patient and/or on the patient floor today, greater than?50% of which was spent counseling/coordinating care. Patient educated on: medication risk/benefits Informed Consent: understands Reason for contiued inpatient stay Substantial Risk for: rapid decompensation
[2022-04-26 16:56] VITALS: BP 135/74; PULSE 78; TEMP 36.6; O2SAT 99
[2022-04-26] MEDS: traZODone HCL 50 MG TABLET PO (19:24)
[2022-04-27 06:00] VITALS: BP 142/81; PULSE 49; RESP 16; TEMP 36.4; O2SAT 100
[2022-04-27 07:52] LABS: Folate 11.7 ng/mL (> or = 4.0); Vitamin B12 760 pg/mL (200-900)
[2022-04-27] MEDS: ARIPiprazole 15 MG TABLET PO (08:25)
[2022-04-27] MEDS: Nicotine 14 MG PATCH.TD24 TRANSDERMA (08:25)
[2022-04-27] MEDS: Clotrimazole 1 % Cream 15 GM TUBE 1 APPL TOPICAL (08:28)
[2022-04-27] MEDS: Nicotine Polacrilex 2 MG GUM BUCCAL (09:14)
--- NOTE | 2022-04-27 10:32 | PM.PSYDC ---
DS: Providers Provider Date of Service: 04/27/22 Date of admission: 04/19/22 22:18 Date of discharge: 04/27/22 Primary care physician: Unknown Physician Admitting clinician: Savanah Perez Attending physician on admission: Loco Barber Attending physician on discharge: Loco Barber Discharging clinician: Savanah Perez DS: Diagnosis Discharge Diagnosis (1) Acute psychosis: Status: Resolved DS: Medications Discharge Medications Home Medications: Previous Rx's Medication Instructions Recorded aripiprazole 15 mg tablet 15 mg PO DAILY #30 tabs 04/27/22 clotrimazole 1 % topical cream 1 appl topical BID #3 applicators 04/27/22 nicotine (polacrilex) 2 mg gum 2 mg buccal Q2H PRN Nicotine 04/27/22 Cravings #60 ea nicotine 14 mg/24 hr daily 14 mg transdermal DAILY #30 ea 04/27/22 transdermal patch Mental Status Exam Mental Status Exam Narrative: quiet, sitting on bed Patient Appearance: Well Grooomed and Appropriate Patient Orientation: Person, Place, Time and Situation Level of Consciousness: Awake and Appropriate Patient Behavior: Appropriate, Cooperative, Passive and Good Eye Contact Mood Description: Calm Affect Description: Constricted Patient Cognition Impaired: No Ability to Follow Directions: Fair Speech Pattern: Clear Hallucinations: None Delusions: Not Present Thought Process: Distracted and Slowed Thinking Thought Content: positive for Slowed Thinking (mildly disorganized) Depressive Symptoms: Difficulty Concentrating Judgement: Good Data Data Completed and Pending Completed studies during hospitalization [Text1]: 04/26/22 04/26/22 04/26/22 07:23 07:23 07:23 Estimat Average Glucose 114 Hemoglobin A1c % 5.6 Triglycerides 45 Cholesterol 150 LDL Cholesterol, Calc 93 HDL Cholesterol 48 Vitamin B12 760 Folate 11.7 TSH 1.06 Imaging Diagnostic Imaging Impressions Head CT 04/18/22 16:34 IMPRESSION: No CT evidence for acute intracranial pathology. DS: Summary Hospital Course Hospital Course: Admission to adult psychiatry for exacerbation of a brief psychotic state. Upon admission, pt signed a three day notice. He accepted Abilify trial and tolerated this well. He was discharged at the end of the three day notice and will return to [employer] at [place]. Time spent discussing smoking cessation with patient: 3 to 10 minutes Status at Discharge Functional status at discharge: independent ambulation Overall status at discharge: patient is back to baseline Time Spent with Patient Time attestation: Total time spent providing and/or coordinating discharge services: 35 Time spent: Greater than 30 minutes Discharge Plan Discharge Anticipated Discharge Date/Time: 04/27/22 14:33 Patient Disposition: Xfer Other Discharge Diagnosis: Psychosis Referrals: Nicolette Thomas [Other] - 04/28/22 10:30 am (Patient to have follow-up appointment with Nicolette Thomas, mental health counselor at [employer] upon return to school. Medications are to be prescribed by physician at school.) [facility] [Other] - 1 Week Discharge Medications: New nicotine 14 mg/24 hr Patch 24 Hour 14 mg transdermal DAILY Qty: 30 0RF nicotine (polacrilex) 2 mg Gum 2 mg buccal Q2H PRN (Reason: Nicotine Cravings) Qty: 60 0RF clotrimazole 1 % Cream 1 appl topical BID Qty: 3 0RF Protocol: Apply to: Apply to: feet aripiprazole 15 mg Tablet 15 mg PO DAILY Qty: 30 0RF Discharge Orders: Discharge Order (Routine); Ordered 04/27/22 Ordered By: Savanah Perez Diet: Advance to usual diet Activity on Discharge: As tolerated Stand Alone Forms: Patient Portal Discharge page, Community Support Care Plan Goals: Maintain mood and safe behaviors Take medications as directed Practice coping skills Continue with out patient providers in scheduled appointments and to connect with as needed. Health Concerns: Mood and behavioral stability Plan of Treatment: Follow up with out patient providers Take medications as directed Assessment: Mathieu has signed a three day notice, which expires today. He is alert, oriented, non psychotic, non suicidal, non homicidal and has a stable mood. 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 Discharge Date/Time: 04/27/22 14:35
== END 2022-04-27 14:35 | disposition other institution (70) | DRG 751 ==
LOC: HO.ED 17:24 → HO.PM5 04-19 22:27
PROVIDERS: Emergency Medicine; Admitting Provider Psychiatry & Neurology Psychiatry; Emergency Provider Student in an Organized Health Care Education/Training Program; Visit Provider Clinical Nurse Specialist Psychiatric/Mental Health, Adult
DX: F23 Brief psychotic disorder (principal); F17.210 Nicotine dependence, cigarettes, uncomplicated; G43.909 Migraine, unspecified, not intractable, without status migrainosus; Z20.822 Contact with and (suspected) exposure to COVID-19; Z71.6 Tobacco abuse counseling; Z79.899 Other long term (current) drug therapy
CPT/HCPCS: 36415; 70450; 80048; 80053; 80061; 80076; 80307; 81003; 82607; 82746; 83036; 84443; 85025; 87635; 90792; 93005; 99285; J1885

== ENCOUNTER 2022-05-10 19:19 | Emergency (ER) | payer OTHER, SELFPAY ==
[2022-05-10 19:28] VITALS: BP 120/65; BP 146/82; PULSE 75; PULSE 84; RESP 12; TEMP 37; O2SAT 98; BMI 20.3
[2022-05-10 19:53] VITALS: BP 131/64; PULSE 82
[2022-05-10 19:55] VITALS: BP 128/62; PULSE 84
[2022-05-10 19:56] VITALS: BP 124/73; PULSE 86
[2022-05-10 20:33] LABS: Amphetamine Screen Urine Not Detected (Not Detect); Barbiturates, Urine Not Detected (Not Detect); Benzodiazepines Screen Urine Not Detected (Not Detect); Cannabinoid Screen Urine POSITIVE (Not Detect); Cocaine Screen Urine Not Detected (Not Detect); Fentanyl, urine Not Detected (Not Detect); Opiate Screen Urine Not Detected (Not Detect); Phencyclidine Screen Urine Not Detected (Not Detect)
--- NOTE | 2022-05-10 21:42 | ED.GENADULT ---
HPI - General Adult General Chief complaint: Altered Mental Status Stated complaint: ams Time Seen by Provider: 05/10/22 19:34 Source: patient and EMS Mode of arrival: EMS Limitations: no limitations History of Present Illness HPI narrative: Patient history of psychosis just discharged from inpatient psych on 04/27 admitted for acute psychosis, was at [employer] was not acting like himself felt dizzy and slumped down no significant injury Related Data Previous Rx's Medication Instructions Recorded aripiprazole 15 mg tablet 15 mg PO DAILY #30 tabs 04/27/22 clotrimazole 1 % topical cream 1 appl topical BID #3 applicators 04/27/22 nicotine (polacrilex) 2 mg gum 2 mg buccal Q2H PRN Nicotine 04/27/22 Cravings #60 ea nicotine 14 mg/24 hr daily 14 mg transdermal DAILY #30 ea 04/27/22 transdermal patch Allergies Allergy/AdvReac Type Severity Reaction Status Date / Time pollen extracts Allergy Itchy Eyes Verified 04/18/22 15:34 Review of Systems Review of Systems: Yes all other systems are reviewed and are negative [facility] Social History Social History Household Members: Other Household Members Other:: Lives at residential care Housing: Apartment Do you presently have visiting nurse or other home services: No Patient Tobacco Use Status: Current everyday Tobacco user Tobacco use type: Cigarette Cigarette Packs Per Day: 0.5 Cigarettes Per Day: 10.0 e-Cigarette/Vaping Use: Never Used Second Hand Smoke Exposure: No Use of substances other than those prescribed or required for medical reasons: No Substance Use Type: Marijuana Advance Directives: No Advance Directives Information Provided: No service: No Sexual orientation: Straight/Heterosexual Physical Exam ED Vital Signs: Vital Signs - 24 hr 05/10/22 19:28 05/10/22 19:53 05/10/22 19:55 Temperature 98.6 F Pulse Rate 75 82 84 Respiratory Rate 12 Blood Pressure 120/65 131/64 128/62 Pulse Oximetry 98 Oxygen Delivery Method Room Air 05/10/22 19:56 Temperature Pulse Rate 86 Respiratory Rate Blood Pressure 124/73 Pulse Oximetry Oxygen Delivery Method BMI result Body Mass Index 20.3 Appearance: Alert. Very soft-spoken answering only few words No acute distress. Eyes: PERRLA, No Nystagmus ENT: Pharynx normal. Oral Mucosa moist Neck: Normal inspection. Neck supple. CVS: Normal heart rate and rhythm. Pulses normal. Respiratory: No respiratory distress. Equal air entry bilateral, no wheezing/rales/rhonchi Abdomen: Soft and nontender. Bowel sounds are present, no mass palpable, no CVA tenderness Skin: Skin warm and dry. Normal skin color. Normal skin turgor. Extremities: No lower extremity edema. No calf tenderness Psych: Awake flat affect speaking in few words only no obvious hallucinations Neuro: Alert No motor deficit. No sensory deficit.No cerebellar signs , cranial nerves II-XII intact Medical Decision Making MDM Narrative Medical decision making narrative: 2229 Patient acting normally at this time soft-spoken spoke to the MD in charge at [facility] he started on hydroxyzine for sleep, causing the dizziness and sleepiness, patient was just discharged from here for acute psychosis, feel comfortable taking patient back to [facility] as-needed Lab Data Labs: Lab Results 05/10/22 05/10/22 Range/Units 20:05 22:01 Urine Opiates Screen Not Detected (Not Detect) Urine Fentanyl Screen Not Detected (Not Detect) Ur Barbiturates Screen Not Detected (Not Detect) Ur Phencyclidine Scrn Not Detected (Not Detect) Ur Amphetamines Screen Not Detected (Not Detect) U Benzodiazepines Scrn Not Detected (Not Detect) Urine Cocaine Screen Not Detected (Not Detect) U Marijuana (THC) Screen POSITIVE H (Not Detect) COVID-19 (TREY) Negative (Negative) COVID-19 Clin Com See Note Discharge Plan Discharge Clinical Impression: Psychotic disorder Patient Disposition: Home, Self-Care Instructions: Psychotic Disorder (ED) Additional Instructions: Continue medications and follow up with therapist Prescriptions: No Action nicotine 14 mg/24 hr Patch 24 Hour 14 mg transdermal DAILY Qty: 30 0RF nicotine (polacrilex) 2 mg Gum 2 mg buccal Q2H PRN (Reason: Nicotine Cravings) Qty: 60 0RF clotrimazole 1 % Cream 1 appl topical BID Qty: 3 0RF Protocol: Apply to: Apply to: feet aripiprazole 15 mg Tablet 15 mg PO DAILY Qty: 30 0RF
[2022-05-10 22:29] LABS: COVID-19 Test Negative (Negative)
--- NOTE | 2022-05-10 23:01 | PC.NURSE ---
Discharge instructions provided to pt. Pt verbalizes understanding.
== END 2022-05-10 23:01 | disposition home or self-care (01) ==
PROVIDERS: Emergency Provider Internal Medicine
DX: R41.82 Altered mental status, unspecified (principal); F23 Brief psychotic disorder; R42 Dizziness and giddiness; Z20.822 Contact with and (suspected) exposure to COVID-19; Z79.899 Other long term (current) drug therapy; F17.210 Nicotine dependence, cigarettes, uncomplicated; Z71.6 Tobacco abuse counseling
CPT/HCPCS: 80307; 87635; 99284